=== PATIENT | female | born 1965 | race Caucasian/White ===

== ENCOUNTER 2018-09-26 21:22 | Emergency (ER) | payer MEDICAID ==
[2018-09-26 21:22] VITALS: BMI 28.1
[2018-09-26] MEDS ORDERED: Sodium Chloride 0.9% 1,000 ML IV ONE (21:56)
[2018-09-26 22:15] LABS: BASO # 0.2 K/uL (0.0-0.2); BASO % 2.1 % (0.0-2.0); EOS # 0.1 K/uL (0.0-0.7); EOS % 1.1 % (0.0-4.0); HEMOGLOBIN 13.8 g/dL (11.0-16.0); LYMPH # 1.1 K/uL (1.0-4.3); LYMPH % 12.7 % (20.0-40.0); MEAN CELL VOLUME 85.9 fL (81.0-99.0); MEAN CORPUSCULAR HEMOGLOBIN 28.7 pg (27.0-31.0); MEAN CORPUSCULAR HGB CONC 33.4 g/dL (33.0-37.0); MEAN PLATELET VOLUME 8.1 fL (7.2-11.7); MONO # 0.4 K/uL (0.0-0.8); MONO % 4.9 % (0.0-10.0); NEUT # 6.7 K/uL (1.8-7.0); NEUT % 79.2 % (50.0-75.0); NRBC % 0.1 % (0.0-2.0); RBC 4.81 Mil/uL (3.80-5.20); RED CELL DISTRIBUTION WIDTH 12.7 % (11.5-14.5); WHITE BLOOD COUNT 8.4 K/uL (4.8-10.8)
[2018-09-26 22:25] LABS: ALBUMIN 4.9 g/dL (3.5-5.0); ALT/SGPT 20 U/L (9-52); AST/SGOT 19 U/L (14-36); BLOOD UREA NITROGEN 14 mg/dL (7-17); CALCIUM 9.1 mg/dl (8.6-10.4); GFR NON-AFRICAN AMERICAN > 60; LIPASE 57 U/L (23-300)
[2018-09-26] MEDS ORDERED: Lidocaine 2% Jelly (Uro-Jet) TOP ONE (22:28)
[2018-09-26] MEDS ORDERED: Lidocaine 2% Jelly (Uro-Jet) ONE (22:45)
--- NOTE | 2018-09-26 23:42 | C.PDOC ---
History Of Present Illness 53 year old female presents to the ED c/o colichy abdominal pain and no bowel movements for the past 2 days. Patient states she had a failed attempt with glycerin suppository and fleet enema yesterday. Patient reports she suffers from chronic constipation. Patient denies fever, chills, nausea, vomit, diarrhea, dysuria, hematuria, rash. Time Seen by Provider: 09/26/18 21:50 Chief Complaint (Nursing): GI Problem History Per: Patient History/Exam Limitations: no limitations Onset/Duration Of Symptoms: Days Current Symptoms Are (Timing): Still Present Location Of Pain/Discomfort: Diffuse Quality Of Discomfort: "Pain" Associated Symptoms: Constipation. denies: Nausea, Vomiting, Diarrhea, Urinary Symptoms Recent travel outside of the [place]: No Additional History Per: Patient Abnormal Vaginal Bleeding: No Past Medical History Reviewed: Historical Data, Nursing Documentation, Vital Signs Vital Signs: Last Vital Signs Temp 98.9 F 09/26/18 21:34 Pulse 92 H 09/26/18 21:34 Resp 20 09/26/18 21:34 BP 141/81 09/26/18 21:34 Pulse Ox 99 09/26/18 21:34 - Medical History PMH: HTN, Hypercholesterolemia Surgical History: No Surg Hx Family History: States: Unknown Family Hx - Social History Hx Alcohol Use: No Hx Substance Use: No - Immunization History Hx Tetanus Toxoid Vaccination: No Hx Influenza Vaccination: No Hx Pneumococcal Vaccination: No Review Of Systems Constitutional: Negative for: Fever, Chills Cardiovascular: Negative for: Chest Pain Respiratory: Negative for: Cough, Shortness of Breath Gastrointestinal: Positive for: Abdominal Pain, Constipation. Negative for: Nausea, Vomiting, Diarrhea Genitourinary: Negative for: Dysuria Skin: Negative for: Rash Neurological: Negative for: Weakness, Numbness Physical Exam - Physical Exam Appears: Non-toxic, No Acute Distress, Other (older than stated age, obese) Skin: Normal Color, Warm, Dry Head: Atraumatic, Normacephalic Eye(s): bilateral: Normal Inspection Oral Mucosa: Moist Neck: Normal ROM, Supple Chest: Symmetrical Cardiovascular: Rhythm Regular Respiratory: Normal Breath Sounds, No Rales, No Rhonchi, No Wheezing Gastrointestinal/Abdominal: Soft, No Tenderness, Distention, No Guarding, No Rebound Back: No CVA Tenderness Extremity: Normal ROM, No Tenderness, No Swelling Neurological/Psych: Oriented x3, Normal Speech, Normal Cognition Gait: Steady ED Course And Treatment - Laboratory Results Result Diagrams: 09/26/18 22:07 09/26/18 22:07 Lab Results: Total Bilirubin 1.1 mg/dL (0.2-1.3) 09/26/18 22:07 AST 19 U/L (14-36) 09/26/18 22:07 ALT 20 U/L (9-52) 09/26/18 22:07 Alkaline Phosphatase 75 U/L (38-126) 09/26/18 22:07 Total Protein 7.3 g/dL (6.3-8.3) 09/26/18 22:07 Albumin 4.9 g/dL (3.5-5.0) 09/26/18 22:07 Globulin 2.4 gm/dL (2.2-3.9) 09/26/18 22:07 Albumin/Globulin Ratio 2.0 (1.0-2.1) 09/26/18 22:07 Lipase 57 U/L (23-300) 09/26/18 22:07 Urine HCG, Qual Negative (NEGATIVE) 09/26/18 22:03 Urine HCG, Qual Negative (NEGATIVE) 09/26/18 22:03 Lab Interpretation: Normal (ua neg.) Urine POC: Negative O2 Sat by Pulse Oximetry: 99 (ON RA) Pulse Ox Interpretation: Normal - Radiology CXR: Interpreted by Me CXR Interpretation: Yes: No Acute Disease - Other Rad abd x 2 X-Ray: Interpreted by Me (+FOS, + rectal stool impaction) Progress Note: lubricate w Urojet, digital disempaction, Fleets enema to dwell in extreme L lateral decubitus Trendelenberg x 20 minutes, then large satisfying BM. pt feels much better. PO Mag Citrate given Reevaluation Time: 23:40 Reassessment Condition: Improved Medical Decision Making Medical Decision Making: acute on chronic constipation very constipating diet. now s/p disempaction tight anus may contribute to rectal impaction ? underlying anal lesion (not detected in this exam) no s/s of weight loss. Refer for colonoscopy Disposition Doctor Will See Patient In The: Office Counseled Patient/Family Regarding: Studies Performed, Diagnosis - Disposition Referrals: [facility] [Outside] [facility] [Outside] [facility] [Outside] Sarai Pickett MD [Staff Provider] - Disposition: HOME/ ROUTINE Disposition Time: 23:42 Condition: GOOD Additional Instructions: drink the laxative now and re-evaluate your abdominal discomfort after 2-3 bowel movements diet and exercise changes 7 fresh fruits and vegetables daily 45 minute power walk 5 days/week Have Dr. Pickett refer you for Colonoscopy- anus tight may be anxiety vs pathological Instructions: Constipation in Adults, Fecal Impaction Forms: [employer] ([place] Citizen) - Clinical Impression Clinical Impression: Constipation, Fecal impaction in rectum - Scribe Statement The provider has reviewed the documentation as recorded by the Scribe Micah Alvarenga All medical record entries made by the Scribe were at my direction and personally dictated by me. I have reviewed the chart and agree that the record accurately reflects my personal performance of the history, physical exam, medical decision making, and the department course for this patient. I have also personally directed, reviewed, and agree with the discharge instructions and disposition.
[2018-09-26] MEDS ORDERED: Magnesium Citrate Oral SOL (300 ml) PO ONE (23:51)
[2018-09-27] VITALS: BP 134/84; PULSE 97; RESP 16; TEMP 98.3
[2018-09-27 00:19] VITALS: O2SAT 99
--- NOTE | 2018-09-27 15:18 | RAD ---
Date of service: 09/26/2018 PROCEDURE: Radiographs of the chest and abdomen (obstructive series) HISTORY: Abdominal pain COMPARISON: Comparison made with chest radiograph 08/31/2016. TECHNIQUE: AP radiograph of the chest, with upright and supine radiographs of the abdomen. FINDINGS: CHEST: Lungs: Mild bibasilar atelectasis. Cardiovascular: Normal size heart. No pulmonary vascular congestion. No aortic atherosclerotic calcification present Pleura: No pleural fluid. No pneumothorax. Other findings: None. ABDOMEN AND PELVIS: Bowel: No evidence acute mechanical bowel obstruction however there is a large amount of stool seen throughout the colon consistent with fecal retention/constipation and probably mild fecal impaction... Free air: None. Bones: Unremarkable. Other findings: None. IMPRESSION: Minor bibasilar atelectasis. Findings consistent with significant constipation and probably mild fecal impaction
== END 2018-09-27 00:03 | disposition home or self-care (01) ==
LOC: C.ER 21:22
DX: K56.41 Fecal impaction (principal)
CPT/HCPCS: 74022; 80053; 83690; 84703; 85025; 96361; 96374; 99284; J1885; J7030